=== PATIENT | female | born 1985 | race Caucasian/White ===

== ENCOUNTER 2022-10-16 10:00 | Outpatient (RCR) | payer OTHER, SELFPAY | END 2022-10-16 10:54 | disposition home or self-care (01) | LOC: HO.PTCHIC 10:00 | PROVIDERS: PCP Family Medicine; Visit Provider Student in an Organized Health Care Education/Training Program | DX: M62.9 Disorder of muscle, unspecified (principal) | CPT/HCPCS: 97112; 97140; 97161 ==